=== PATIENT | female | born 1990 | race Caucasian/White ===

== ENCOUNTER → 2023-11-24 11:42 | Outpatient (BNVA) | payer SELFPAY | PROVIDERS: Visit Provider Nurse Practitioner | DX: R39.9 Unspecified symptoms and signs involving the genitourinary system (principal); N30.01 Acute cystitis with hematuria | CPT/HCPCS: 81000 ==

== ENCOUNTER 2024-09-16 18:43 | Emergency (ER) | payer SELFPAY ==
[2024-09-16 18:49] VITALS: BP 113/72; PULSE 83; RESP 16; TEMP 36.6; O2SAT 100
[2024-09-16 19:06] LABS: Bilirubin Urine Negative (Negative); Blood Urine 2+ (Negative); Glucose Urine UA Negative (Normal); Ketones Urine Negative (Negative); Leukocyte Esterase Urine 2+ (Negative); Nitrate Urine Negative (Negative); Protein Urine Trace (Negative); Specific Gravity, Urine 1.026 (1.005-1.030); Urine Appearance Cloudy (CLEAR); Urine Color Yellow (Yellow)
[2024-09-16 19:08] LABS: HCG Qualitative Urine. Negative (Negative)
[2024-09-16 19:09] LABS: Add Urine Microscopic? YES; Bacteria Urine 1+ /hpf; Squamous Epithelial Cell Urine 0-5 /hpf (0-5); WBC Urine >100 /hpf (0-5)
[2024-09-16 19:11] LABS: Add Urine Culture? Yes
--- NOTE | 2024-09-16 19:29 | W.ED.FEMALGU ---
HPI - Female Genitourinary General: Chief complaint: Urogenital-Female Stated complaint: UTI Time Seen by Provider: 09/16/24 19:21 Source: patient Mode of arrival: ambulatory Limitations: no limitations History of Present Illness: 33-year-old female states she has had dysuria today states she has had multiple UTIs in the past and this feels the same. States it is very burning in nature she denies any fever denies any vomiting diarrhea denies any flank pain currently Associated symptoms: Deny abdominal pain, headache(s) or nausea Date of Last Menstrual Period: 09/11/24 Related Data Home Medications Medication Instructions Recorded Confirmed cyclobenzaprine 10 mg tablet 10 mg PO TID 11/24/23 11/24/23 sertraline 50 mg tablet (Zoloft) 50 mg PO DAILY 11/24/23 11/24/23 Previous Rx's Medication Instructions Recorded nitrofurantoin 100 mg PO Q12H 7 days #14 caps 11/24/23 monohydrate/macrocrystals 100 mg capsule (Macrobid) phenazopyridine 100 mg tablet 100 mg PO TID PRN pain 6 doses #6 11/24/23 (Pyridium) tabs cephalexin 500 mg capsule 500 mg PO TID 7 days #21 caps 09/16/24 phenazopyridine 100 mg tablet 100 mg PO Q8H PRN pain 6 doses #6 09/16/24 (Pyridium) tabs Allergies Allergy/AdvReac Type Severity Reaction Status Date / Time No Known Allergies Allergy Verified 09/16/24 18:54 Review of Systems Const: Denies: fever(s), chills, body aches or change in appetite ENMT: Denies: throat pain or dental pain Card: Denies: chest pain Resp: Denies: dyspnea GI: Denies: abdominal pain, nausea, vomiting or diarrhea : Reports: dysuria Musc: Denies: neck pain or back pain Skin/Breast: Denies: rash Neuro: Denies: headache(s) [facility] ED Female Reproductive History: Date of last menstrual period: 09/11/24 Physical Exam Const: COMMON NORMALS: no acute distress, patient oriented x3 and healthy appearing HENMT: COMMON NORMALS: normocephalic and atraumatic HEAD & SCALP: normocephalic and atraumatic Eye: COMMON NORMALS: conjunctivae normal CONJUNCTIVA: Yes conjunctivae normal Neck/C-Spine: COMMON NORMALS: full ROM and supple Chest: COMMONS NORMALS: normal inspection of the chest Resp: COMMON NORMALS: normal respiratory effort Cardio: COMMON NORMALS: regular rate RATE: regular rate GI: COMMON NORMALS: Normal to inspection, nondistended, normoactive bowel sounds present, Soft to palpation, non-tender and no masses PALPATION: Yes Soft to palpation Extremity: COMMON NORMALS: normal to inspection and full ROM Neuro: COMMON NORMALS: patient oriented x3, moves all extremities and no focal motor deficits Psych: COMMON NORMALS: mental status grossly normal, Normal thought process present and cooperative THOUGHT PROCESS: Normal thought process present Skin: COMMON NORMALS: no rashes or lesions noted and no wounds GENERAL SKIN EXAM: no rashes or lesions noted Course Vital Signs: Vital signs: Vital Signs Temperature 97.8 F 09/16/24 18:49 Pulse Rate 83 09/16/24 18:49 Respiratory Rate 16 09/16/24 18:49 Blood Pressure 113/72 09/16/24 18:49 Pulse Oximetry 100 09/16/24 18:49 Oxygen Delivery Me thod Room Air 09/16/24 18:49 MDM - Female Medical Decision Making Patient presents for the cystitis we will start her on antibiotics she stable for discharge follow-up PCP return if worsening. Medical Records I reviewed the patient's medical records. Lab Data I reviewed the patient's lab results. Laboratory Results HCG, Qual Negative (Negative) 09/16/24 18:59 Urine Color Yellow (Yellow) 09/16/24 18:59 Urine Appearance Cloudy (CLEAR) A 09/16/24 18:59 Urine pH 5.0 (5-7) 09/16/24 18:59 Ur Specific [place] 1.026 (1.005-1.030) 09/16/24 18:59 Urine Protein Trace (Negative) A 09/16/24 18:59 Urine Glucose (UA) Negative (Normal) 09/16/24 18:59 Urine Ketones Negative (Negative) 09/16/24 18:59 Urine Blood 2+ (Negative) A 09/16/24 18:59 Urine Nitrate Negative (Negative) 09/16/24 18:59 Urine Bilirubin Negative (Negative) 09/16/24 18:59 Urine Urobilinogen 1.0 mg/dL (Negative) 09/16/24 18:59 Ur Leukocyte Esterase 2+ (Negative) A 09/16/24 18:59 Urine RBC 3-5 /hpf (0-2) 09/16/24 18:59 Urine WBC >100 /hpf (0-5) H 09/16/24 18:59 Ur Squamous Epith Cells 0-5 /hpf (0-5) 09/16/24 18:59 Amorphous Sediment Not Reportable 09/16/24 18:59 Urine Bacteria 1+ /hpf (NONE) H 09/16/24 18:59 Hyaline Casts 0.40 /lpf 09/16/24 18:59 No radiology studies performed this visit Discharge Plan Discharge Patient Disposition: Home Clinical Impression: Urinary tract infection Condition: Stable Prescriptions: New cephalexin 500 mg capsule 500 mg PO TID 7 Days Qty: 21 0RF phenazopyridine [Pyridium] 100 mg tablet 100 mg PO Q8H PRN (Reason: pain) Qty: 6 1RF No Action sertraline [Zoloft] 50 mg tablet 50 mg PO DAILY cyclobenzaprine 10 mg tablet 10 mg PO TID nitrofurantoin monohyd/m-cryst [Macrobid] 100 mg capsule 100 mg PO Q12H 7 Days Qty: 14 0RF Rx Instructions: must administer with a meal/food phenazopyridine [Pyridium] 100 mg tablet 100 mg PO TID PRN (Reason: pain) Qty: 6 0RF Discharge Orders: Discharge ED (Routine); Ordered 09/16/24 Ordered By: Frida Vegas Discharge Diet: Advance as tolerated Discharge Activity: Resume usual activity Patient Instructions: Urinary Tract Infection in Women (ED) 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
[2024-09-16] MEDS: cefTRIAXone 1,000 MG in water for injection-sterile 2.1 ML 2.1 MG IM (19:53)
[2024-09-16] MEDS: phenazopyridine 100 mg Tablet 200 MG PO (19:53)
[2024-09-16 20:24] VITALS: BP 106/74; PULSE 81; RESP 16; O2SAT 98
[2024-09-16 20:38] VITALS: BP 106/74; PULSE 77; RESP 16; O2SAT 98
== END 2024-09-16 20:41 | disposition home or self-care (01) ==
PROVIDERS: Emergency Provider Emergency Medicine
DX: N39.0 Urinary tract infection, site not specified (principal)
CPT/HCPCS: 81001; 81025; 87086; 96372; 99284; J0696

== ENCOUNTER 2025-08-31 19:43 | Emergency (ER) | payer OTHER, SELFPAY ==
[2025-08-31 19:47] VITALS: BP 127/81; PULSE 80; RESP 17; TEMP 36.8; O2SAT 99; BMI 28.4
[2025-08-31 20:30] LABS: Hematocrit 38.1 % (36-47); Hemoglobin 12.60 g/dL (11.27-16.99); Mean Corpuscular HGB Conc 33.1 g/dL (30-55); Mean Corpuscular Hemoglobin 31.4 pg (27-33); Mean Corpuscular Volume 95.0 fl (85-98); Platelet Count 297 10^3/cmm (157-399); Red Blood Count 4.01 10^6/uL (3.85-5.65); White Blood Count 10.88 10^3/uL (3.29-11.43)
[2025-08-31 20:48] LABS: Alanine Aminotransferase 15 U/L (0-33); Albumin Level 4.2 g/dL (3.5-5.2); Alkaline Phosphatase 84 U/L (35-105); Anion Gap 15.0 (5-19); Aspartate Amino Transferase 22 U/L (0-32); Blood Urea Nitrogen 9 mg/dL (6-20); Calcium 9.2 mg/dL (8.5-10.5); Carbon Dioxide 25 mmol/L (22-29); Chloride 105 mmol/L (98-107); Creatinine Clr Calc Pharmacy 152.1492; Globulin 2.9 g/dL (1.3-4.6); Glucose 114 mg/dL (65-115); Lipase 92 U/L (13-60); Osmolality Calculated 292 mOsm/kg (285-295); Potassium 4.0 mmol/L (3.5-5.1); Sodium 141 mmol/L (136-145); Total Protein 7.1 g/dL (6.6-8.7)
[2025-08-31 21:00] LABS: HCG, Serum Qual Negative (Negative)
[2025-08-31 21:25] LABS: Slide Review Slide Review Perform
[2025-08-31 21:26] LABS: Absolute Segmented Neutrophil 4.7 10/cmm (1.6-7.1); Atypical Lymphs 0.0 % (0-5); Band Neutrophils Absolute 0.3 10^3/cmm (0.0-1.2); Total Cells Counted 100 (0-100)
--- NOTE | 2025-08-31 22:06 | ED_ITS ---
HPI - Female Genitourinary 2 General: Chief complaint: Abdominal Pain Stated complaint: Lower LT side pain Time Seen by Provider: 08/31/25 21:55 Source: patient Mode of arrival: ambulatory Limitations: no limitations History of Present Illness: Patient is a 34-year-old female presents to ED today with a complaint of left lower abdominal/pelvis pain that started yesterday and worsened today. She states she has had similar discomforts in the past but nothing to the severity as it is now. She is not complaining of nausea or vomiting. No changes in her bowel movements. She has no urinary complaints. She states she finished her menstrual cycle approximately a week ago. No known history of ovarian cyst. She denies any vaginal discharge or vaginal odor. States she is monogamous with her partner of over 10 years. MD elicited complaint: pelvic pain Onset (ago): day(s) Severity: moderate Quality of pain: sharp and stabbing Consistency: constant Vaginal discharge: none Vaginal bleeding: none Exacerbating factors: none Relieving factors: none Associated symptoms: Reports no associated symptoms; Deny abdominal pain, headache(s), nausea or vaginal discharge Treatment prior to arrival: none Sexual activity: Yes Patient : No Related Data Home Medications ?Medication ?Instructions ?Recorded ?Confirmed cyclobenzaprine 10 mg tablet 10 mg PO TID 11/24/23 sertraline 50 mg tablet (Zoloft) 50 mg PO DAILY 11/24/23 Previous Rx's ?Medication ?Instructions ?Recorded nitrofurantoin 100 mg PO Q12H 7 days #14 ca ps 11/24/23 monohydrate/macrocrystals 100 mg capsule (Macrobid) phenazopyridine 100 mg tablet 100 mg PO TID PRN pain 6 doses #6 11/24/23 (Pyridium) tabs phenazopyridine 100 mg tablet 100 mg PO Q8H PRN pain 6 doses #6 09/16/24 (Pyridium) tabs tramadol 50 mg tablet 50 mg PO Q6H PRN pain #10 ta bs 09/01/25 Allergies Allergy/AdvReac Type Severity Reaction Status Date / Time No Known Allergies Allergy Verified 09/16/24 18:54 Review of Systems 2 Const: Denies: fever(s), chills, body aches, fatigue or malaise Card: Denies: chest pain Resp: Denies: dyspnea GI: Denies: abdominal pain, nausea, vomiting, diarrhea or change in bowel habits : Reports: pelvic pain; Denies: flank pain, difficulty voiding, dysuria, urinary frequency, urinary urgency, urinary hesitancy, vaginal odor, vaginal bleeding or vaginal discharge Musc: Denies: back pain Skin/Breast: Denies: rash Neuro: Denies: headache(s), numbness in extremities, weakness in extremities, sensory changes or dizziness Physical Exam 2 Const: COMMON NORMALS: no acute distress, average body habitus, patient oriented x3, no limitations, healthy appearing, alert and well nourished G ENERAL APPEARANCE: cooperative HENMT: COMMON NORMALS: normocephalic and atraumatic HEAD & SCALP: n ormocephalic and atraumatic Neck/C-Spine: COMMON NORMALS: no lymphadenopathy Resp: COMMON NORMALS: normal respiratory effort and clear to auscultation bilaterally AUSCULTATION: clear to auscultation bilaterally Cardio: COMMON NORMALS: regular rate and regular rhythm RATE: regular rate RHYTHM: regular rhythm GI: COMMON NORMALS: Normal to inspection, nondistended, normoactive bowel sounds present, Soft to palpation, No hepatosplenomegaly present and no masses INSPECTION: Yes normal to inspection AUSCULTATION: Yes normoactive bowel sounds PALPATION: Yes Soft to palpation, Yes Tenderness to palpation present (GI) (pelvis-left), No Guarding due to palpation present (GI), No Rigid due to palpation and Yes No hepatosplenomegaly present : COMMON NORMALS: Yes no CVA tenderness BLADDER/KIDNEY EXAM: Yes no CVA tenderness Back/Pelvis: COMMON NORMALS: no CVA tenderness Extremity: GENERAL: Yes normal exam except as noted Neuro: COMMON NORMALS: patient oriented x3 SENSORIUM/ORIENTATION: Yes alert Skin: COMMON NORMALS: no rashes or lesions noted GENERAL SKIN EXAM: no rashes or lesions noted Course 2 Vital Signs: Vital signs: Vital Signs Temperature 98.2 F 08/31/25 19:47 Pulse Rate 63 08/31/25 22:51 Respiratory Rate 17 08/31/25 19:47 Blood Pressure 101/51 08/31/25 22:51 Pulse Oximetry 94 08/31/25 22:51 Oxygen Delivery Me thod Room Air 08/31/25 22:51 MDM - Female Medical Decision Making Patient here for left lower pelvic pain. No vaginal bleeding or vaginal discharge. Vital signs are stable. Blood work showing a normal white count. Chemistry panel is unremarkable. Scant elevation to her CRP at 7.6 of unknown significance. Her UA is completely clear. Ultrasound imaging unrevealing for etiology. She did have a small right ovarian cyst. No left ovarian cyst or torsion noted. Patient states she has had similar discomforts previously but nothing to this severity. Pain had improved upon arrival to the emergency department. At this time I do not have any suspicion for life-threatening or emergent etiology. We will have case management set her up with a primary care provider for further care. Return to ED precautions discussed. Differential Diagnosis Likely abdominal pain Medical Records I reviewed the patient's medical records. Lab Data I reviewed the patient's lab results. 08/31/25 20:18 08/31/25 20:18 Laboratory Results WBC 10.88 10^3/uL (3.29-11.43) 08/31/25 20:18 RBC 4.01 10^6/uL (3.85-5.65) 08/31/25 20:18 Hgb 12.60 g/dL (11.27-16.99) 08/31/25 20:18 Hct 38.1 % (36-47) 08/31/25 20:18 MCV 95.0 fl (85-98) 08/31/25 20:18 MCH 31.4 pg (27-33) 08/31/25 20:18 MCHC 33.1 g/dL (30-55) 08/31/25 20:18 RDW 12.8 % (12.1-15.1) 08/31/25 20:18 Plt Count 297 10^3/cmm (157-399) 08/31/25 20:18 MPV 9.8 fL (7.4-10.4) 08/31/25 20:18 Lymph % (Auto) Not Reportable 08/31/25 20:18 [place] % (Auto) Not Reportable 08/31/25 20:18 Lymph # (Auto) Not Reportable 08/31/25 20:18 [place] # (Auto) Not Reportable 08/31/25 20:18 Total Counted 100 (0-100) 08/31/25 20:18 Atypical Lymphs % 0.0 % (0-5) 08/31/25 20:18 Absolute Neutrophils 5.0 10^3/cmm (1.4-6.5) 08/31/25 20:18 Segmented Neutrophils 43 % 08/31/25 20:18 Band Neutrophils 3.0 % 08/31/25 20:18 Absolute Lymphocytes 5.1 10^3/cmm (1.2-3.4) H 08/31/25 20:18 Lymphocytes (Manual) 47 % 08/31/25 20:18 Monocytes (Manual) 5.0 % 08/31/25 20:18 Absolute Monocytes 0.5 10^3/cmm (0.1-0.6) 08/31/25 20:18 Eosinophils (Manual) 2 % 08/31/25 20: Absolute Eosinophils 0.2 10^3/cmm (0.0-0.7) 08/31/25 20: Basophils (Manual) 0.0 % 08/31/25: Absolute Basophils 0.0 10^3/cmm (0.0-0.2) 08/31/25 20:18 Platelet Estimate Normal (Normal) 08/31/25 20:18 Sodium 141 mmol/L (136-145) 08/31/25 20:18 Potassium 4.0 mmol/L (3.5-5.1) 08/31/25 20:18 Chloride 105 mmol/L (98-107) 08/31/25 20:18 Carbon Dioxide 25 mmol/L (22-29) 08/31/25 20:18 Anion Gap 15.0 (5-19) 08/31/25 20:18 BUN 9 mg/dL (6-20) 08/31/25 20:18 Creatinine 0.6 mg/dL (0.5-0.9) 08/31/25 20:18 GFR Calculation 115.1 mL/min (90-130) 08/31/25 20:18 Glucose 114 mg/dL (65-115) 08/31/25 20:18 Calculated Osmolality 292 mOsm/kg (285-295) 08/31/25 20:18 Calcium 9.2 mg/dL (8.5-10.5) 08/31/25 20:18 Total Bilirubin 0.2 mg/dL (0.15-1.2) 08/31/25 20:18 AST 22 U/L (0-32) 08/31/25 20:18 ALT 15 U/L (0-33) 08/31/25 20:18 Alkaline Phosphatase 84 U/L (35-105) 08/31/25 20:18 C-Reactive Protein 7.6 mg/L (0.0-4.9) H 08/31/25 20:18 Total Protein 7.1 g/dL (6.6-8.7) 08/31/25 20:18 Albumin 4.2 g/dL (3.5-5.2) 08/31/25 20:18 Globulin 2.9 g/dL (1.3-4.6) 08/31/25 20: Lipase 92 U/L (13-60) H 08/31/25 20:18 HCG, Qual Negative (Negative) 08/31/25 20:18 Urine Color Yellow (Yellow) 08/31/25 20:00 Urine Appearance Clear (CLEAR) 08/31/25 20:00 Urine pH 7 (5-7) 08/31/25 20:00 Ur Specific [place] 1.005 (1.005-1.030) 08/31/25 20:00 Urine Protein Neg (Negative) 08/31/25 20:00 Urine Glucose (UA) Norm (Normal) 08/31/25 20:00 Urine Ketones Negative (Negative) 08/31/25 20:00 Urine Blood Neg (Negative) 08/31/25 20:00 Urine Nitrate Negative (Negative) 08/31/25 20:00 Urine Bilirubin Neg (Negative) 08/31/25 20:00 Urine Urobilinogen Norm mg/dL (Negative) 08/31/25 20:00 Ur Leukocyte Esterase Negative (Negative) 08/31/25 20: Amorphous Sediment Not Reportable 08/31/25 20:00 XR interpretation done by ED provider, pending radiology final review (per Donovan-R ovarian cyst, no L ovarian cyst/torsion; no abnormal fluid collections) Discharge Plan Discharge Patient Disposition: Home Clinical Impression: Left-sided pelvic pain Condition: Stable Prescriptions: New tramadol 50 mg tablet 50 mg PO Q6H PRN (Reason: pain) Qty: 10 0RF No Action sertraline [Zoloft] 50 mg tablet 50 mg PO DAILY cyclobenzaprine 10 mg tablet 10 mg PO TID nitrofurantoin monohyd/m-cryst [Macrobid] 100 mg capsule 100 mg PO Q12H 7 Days Qty: 14 0RF Rx Instructions: must administer with a meal/food phenazopyridine [Pyridium] 100 mg tablet 100 mg PO TID PRN (Reason: pain) Qty: 6 0RF phenazopyridine [Pyridium] 100 mg tablet 100 mg PO Q8H PRN (Reason: pain) Qty: 6 1RF Discharge Orders: Discharge ED (Routine); Ordered 09/01/25 Ordered By: Fauzia Minaya Patient Instructions: Patient Portal & Jose Alfredo Instructions Activity Restrictions/Additional Instructions: As we discussed, your emergency department workup here overall was benign. Ultrasound not showing any definitive cause for your discomfort. We will have you follow-up with a primary care provider for further evaluation in case symptoms do not improve. You may use the prescribed medications to use sparingly for significant discomfort. You may also try heating pads. You may return to the emergency department at anytime for worsening or uncontrollable pain or any other concerns you may have. I hope you begin to feel better soon. Print Language: [place] Coding Level of Care Code ED [employer] for [employer]
--- NOTE | 2025-08-31 22:06 | USR_ITS ---
PROCEDURE INFORMATION: Exam: US Duplex Artery and Vein of the Abdominal and/or Reproductive Organs. Complete Ovaries Exam date and time: 08/31/2025 11:31 PM Age: 34 years old Clinical indication: Pelvic pain; Prior surgery; Surgery date: 6+ months; Surgery type: Unsure of dates but patient reports history of two c sections and tubal ligation; Additional info: L pelvic pain TECHNIQUE: Imaging protocol: Real-time duplex ultrasound scan of the arterial and venous flow with color Doppler flow and spectral waveform analysis with image documentation. Duplex exam was performed to evaluate for torsion and other vascular conditions. COMPARISON: No relevant prior studies available. FINDINGS: Right ovary/adnexa: Confirmed right ovarian blood flow. Normal arterial inflow and spectral sonography. Confirmed right ovarian blood flow. Normal venous outflow and spectral sonography. Left ovary/adnexa: Confirmed left ovarian blood flow. Normal arterial inflow on spectral sonography. Confirmed left ovarian blood flow. Normal venous outflow on spectral sonography. PROCEDURE INFORMATION: Exam: US Pelvis, Transvaginal, Non-Obstetric Exam date and time: 08/31/2025 11:31 PM Age: 34 years old Clinical indication: Pelvic pain; Prior surgery; Surgery date: 6+ months; Surgery type: Unsure of dates but patient reports history of two c sections and tubal ligation; Additional info: L pelvic pain TECHNIQUE: Imaging protocol: Real-time transvaginal pelvic (non-obstetric) ultrasound with image documentation. Transvaginal imaging was used for better evaluation of the endometrium, adnexa, and/or cervix. COMPARISON: No relevant prior studies available. FINDINGS: Uterus: The uterus is anteverted. The endometrial bilayer measures 9 mm, within normal limits. The uterus measures 9.1 x 4.7 x 5.0 cm. No fibroids are noted. Right ovary/adnexa: The right ovary measures 2.4 x 2.2 x 2.3 cm with a volume of 7 mL. A simple anechoic right ovarian cyst measures 1.9 x 1.3 x 1.2 cm. No color Doppler flow. No calcification or suspicious features. No follow-up required. Left ovary/adnexa: The left ovary measures 1.6 x 1.3 x 2.2 cm with a volume of 3 mm. Physiologic follicles of the left ovary are noted. Urinary bladder: Urinary bladder is limited. Intraperitoneal space: No free pelvic fluid. US/ transvaginal [id number] IMPRESSION: 1. Normal arterial blood flow confirmed to both ovaries. No torsion. 2. Normal venous blood flow confirmed in both ovaries. IMPRESSION: No acute findings.
[2025-08-31 22:14] LABS: Add Urine Microscopic? NO
[2025-08-31 22:51] VITALS: BP 101/51; PULSE 63; O2SAT 94
[2025-08-31 22:58] LABS: Glucose Urine UA Norm (Normal); Nitrate Urine Negative (Negative); Specific Gravity, Urine 1.005 (1.005-1.030)
[2025-08-31 22:59] LABS: Charge for UA Resulting for Rev
[2025-08-31 23:51] VITALS: BP 98/59; PULSE 65; O2SAT 99
[2025-09-01 00:11] VITALS: BP 116/47; PULSE 61; O2SAT 97
--- NOTE | 2025-09-01 09:55 | DCPLANNER ---
messaged [facility] to establish a PCP
== END 2025-09-01 00:16 | disposition home or self-care (01) ==
PROVIDERS: Emergency Medicine; Emergency Provider Physician Assistant
DX: R10.22 Pelvic and perineal pain left side (principal)
CPT/HCPCS: 36415; 76830; 80053; 81003; 83690; 84703; 85007; 85025; 86140; 96372; 99284; J1885